=== PATIENT | male | born 1970 | race Caucasian/White ===

== ENCOUNTER 2018-03-01 07:41 | Emergency (ER) | payer OTHER ==
[~2018-03-01] VITALS: Ht 165.1 cm; Wt 96.8 kg
[2018-03-01] MEDS ORDERED: ACYCLOVIR 400 MG TABLET PO ONE (08:30)
[2018-03-01] MEDS ORDERED: PREDNISONE 20MG TABLET PO ONE (08:30)
[2018-03-01 09:06] VITALS: BP 128/79
== END 2018-03-01 09:09 | disposition home or self-care (01) ==
LOC: ER 08:06
DX: G51.0 Bell's palsy (principal); H53.8 Other visual disturbances
CPT/HCPCS: 99283; J7512